=== PATIENT | male | born 1995 | race Caucasian/White ===

== ENCOUNTER 2018-01-08 00:23 | Emergency (ER) | payer BC ==
[~2018-01-08] VITALS: Ht 170.2 cm; Wt 69.5 kg
[2018-01-08 00:28] VITALS: BP 146/66; PULSE 72; RESP 14; TEMP 97.9; O2SAT 97
[2018-01-08] MEDS ORDERED: SERT-132 PO (00:40)
[2018-01-08] MEDS ORDERED: CLIN300C5 PO (01:30)
[2018-01-08] MEDS ORDERED: IBUP1TAB7 PO (01:30)
[2018-01-08] MEDS ORDERED: CLINDAMYCIN 150 MG CAP PO ONE (01:30)
[2018-01-08] MEDS ORDERED: IBUPROFEN 800 MG TAB PO ONE (01:30)
[2018-01-08 01:37] VITALS: BP 146/90
--- NOTE | 2018-01-08 01:41 | PD ---
HPI . Toothache Chief Complaint: Oral / Dental Pain or Problem Time Seen by Provider: 00:45 Travel History International Travel<30 days: No Contact w/Intl Traveler<30days: No History of Present Illness HPI This patient presents with chief complaint of a toothache. Onset was just prior to presentation. He took Tylenol without relief. He rates the pain 9/10. PFSH Past Medical History Anxiety: Yes Tetanus Vaccination: < 5 Years Influenza Vaccination: No Past Surgical History Surgical History: No Previous Surgery Social History Alcohol Use: No Tobacco Use: No Substance Use: No Allergies-Medications (Allergen,Severity, Reaction): Coded Allergies: amoxicillin (Verified Allergy, Unknown, 01/08/18) Reported Meds & Prescriptions Reported Meds & Active Scripts Active Clindamycin (Clindamycin HCl) 300 Mg Cap 300 Mg PO TID Ibuprofen 800 Mg Tab 800 Mg PO Q8H PRN Reported Sertraline (Sertraline HCl) 50 Mg Tab 50 Mg PO DAILY Review of Systems Except as stated in HPI: all other systems reviewed are Neg Physical Exam Narrative GENERAL: Awake and alert and in no acute distress. SKIN: Warm and dry. HEAD: Normocephalic/atraumatic. EYES: Pupils are equal. Extraocular movements are intact. ENT: Tenderness to percussion of his left upper first molar. No erythema or edema of the gingiva. No facial swelling. NECK: Normal range of motion. No cervical lymphadenopathy. CARDIOVASCULAR: Regular rate and rhythm. RESPIRATORY: Nonlabored respirations. MUSCULOSKELETAL: Atraumatic. NEUROLOGICAL: Nonfocal. PSYCHIATRIC: Appropriate mood and affect. Data Data Last Documented VS Vital Signs Date Time Temp Pulse Resp B/P (MAP) Pulse Ox O2 Delivery O2 Flow Rate FiO2 01/08/18 01:37 85 16 146/90 (108) 100 01/08/18 00:28 97.9 Orders Orders Ibuprofen (Motrin) (01/08/18 01:30) Clindamycin (Cleocin) (01/08/18 01:30) Ed Discharge Order (01/08/18 01:31) [facility] Medical Decision Making Medical Screen Exam Complete: Yes Emergency Medical Condition: Yes Differential Diagnosis Differential diagnosis of a toothache includes but is not limited to dental caries, dental abscess, gingivitis, drug-seeking behavior. Narrative Course This patient presents with a toothache. He will be discharged with prescriptions for clindamycin and Motrin. Diagnosis Primary Impression: Toothache Patient Instructions: General Instructions, Toothache (ED) Departure Forms: Work Release, Enter return to work date: January 09, 2018 Tests/Procedures Additional Instructions: Follow up with a dentist Scripts Clindamycin (Clindamycin) 300 Mg Cap 300 MG PO TID for Infection, #21 CAP 0 Refills Prov: Luz Maria Lainez MD 01/08/18 Ibuprofen (Ibuprofen) 800 Mg Tab 800 MG PO Q8H Y for Pain/Inflammation, #60 TAB 0 Refills Prov: Luz Maria Lainez MD 01/08/18 Disposition: DISCHARGE HOME Condition: Stable Luz Maria Lainez MD January 08, 2018 01:41
== END 2018-01-08 01:38 | disposition home or self-care (01) ==
LOC: PHED 00:23
DX: K08.89 Other specified disorders of teeth and supporting structures (principal); F41.9 Anxiety disorder, unspecified; Z88.0 Allergy status to penicillin; Z79.899 Other long term (current) drug therapy
CPT/HCPCS: 99283

== ENCOUNTER 2018-01-11 05:11 | Emergency (ER) | payer BC ==
[~2018-01-11] VITALS: Ht 170.2 cm; Wt 68.8 kg
[~2018-01-11 05:11] MED LIST: CLIN300C5 PO; IBUP1TAB7 PO; SERT-132 PO
[2018-01-11 05:14] VITALS: BP 146/77; PULSE 81; RESP 18; TEMP 97.8; O2SAT 98
[2018-01-11] MEDS ORDERED: CIPR500T2 PO (05:25)
[2018-01-11] MEDS ORDERED: SODIUM CHLOR 0.9% 1000 ML INJ 1,000 ML IV ONE (06:00)
[2018-01-11] MEDS ORDERED: SODIUM CHLORIDE 0.9% FLUSH 10 ML FLUSH IV FLUSH PRN (06:00)
[2018-01-11] MEDS ORDERED: ONDANSETRON HCL 4 MG/2 ML VIAL IV PUSH ONE (06:00)
[2018-01-11] MEDS ORDERED: MORPHINE SULFATE 2 MG/ML SYRINGE IV PUSH ONE (06:00)
[2018-01-11 06:47] LABS: BASOPHIL # 0.2 TH/MM3 (0-0.2); BASOPHIL % 1.4 % (0.0-2.0); EOSINOPHIL # 0.1 TH/MM3 (0-0.4); EOSINOPHIL % 0.7 % (0.0-4.0); HEMATOCRIT 44.5 % (39.0-51.0); HEMOGLOBIN 14.6 GM/DL (13.0-17.0); LYMPH % 10.9 % (9.0-44.0); LYMPHOCYTE # 1.2 TH/MM3 (1.0-4.8); MEAN CELL VOLUME 88.1 FL (80.0-100.0); MEAN CORPUSCULAR HGB CONC 32.9 % (32.0-36.0); MEAN PLATELET VOLUME 8.1 FL (7.0-11.0); MONO % 7.6 % (0.0-8.0); MONOCYTE # 0.9 TH/MM3 (0-0.9); NEUT % 79.4 % (16.0-70.0); PLATELET COUNT 193 TH/MM3 (150-450); RED BLOOD COUNT 5.05 MIL/MM3 (4.50-5.90); RED CELL DISTRIBUTION WIDTH 11.9 % (11.6-17.2); WHITE BLOOD COUNT 11.4 TH/MM3 (4.0-11.0)
[2018-01-11 06:57] LABS: CHLORIDE 106 MEQ/L (98-107); SODIUM (NA) 140 MEQ/L (136-145)
[2018-01-11 07:01] LABS: ALBUMIN 4.6 GM/DL (3.4-5.0); BICARBONATE 25.1 MEQ/L (21.0-32.0); BLOOD UREA NITROGEN 21 MG/DL (7-18); CALCIUM 9.4 MG/DL (8.5-10.1); GLUCOSE,RANDOM 111 MG/DL (74-106); INTERNATIONAL NORMALIZED RATIO 1.1 RATIO; PROTHROMBIN TIME - PATIENT 10.7 SEC (9.8-11.6)
[2018-01-11 07:04] LABS: ALT (GPT) 33 U/L (12-78); AST (GOT) 20 U/L (15-37); GLOMERULAR FILTRATION RATE 54 ML/MIN (>89)
[2018-01-11 07:05] VITALS: BP 136/71; PULSE 76; RESP 18; O2SAT 98
[2018-01-11 07:06] LABS: TOTAL BILIRUBIN ADULT 0.8 MG/DL (0.2-1.0); TOTAL PROTEIN 8.4 GM/DL (6.4-8.2)
[2018-01-11 07:07] LABS: ALKALINE PHOSPHATASE 90 U/L (45-117)
--- NOTE | 2018-01-11 07:24 | PD ---
HPI Chief Complaint: GI Complaint Time Seen by Provider: 05:54 Travel History International Travel<30 days: No Contact w/Intl Traveler<30days: No Traveled to known affect area: No History of Present Illness HPI Patient presents to the emergency department with abdominal pain. States pain started about 8:00/ 9:00 tonight with nausea and vomiting (emesis as his p.o. intake). Pain is described as being epigastric, constant, nonradiating, 6 out of 10, vomiting helps alleviate the pain but no known aggravating factors. He denies fever, chills, diarrhea, dysuria. Of note patient is on clindamycin for dental infection and Cipro for facial cellulitis. States that while he was on the clindamycin he developed facial lesions and came to the ER was given Cipro. Those lesions have since resolved. PFSH Past Medical History Anxiety: Yes Tetanus Vaccination: > 5 Years Influenza Vaccination: No Social History Alcohol Use: No Tobacco Use: No Substance Use: No Allergies-Medications (Allergen,Severity, Reaction): Coded Allergies: amoxicillin (Verified Allergy, Unknown, 01/08/18) Reported Meds & Prescriptions Reported Meds & Active Scripts Active Zofran Odt (Ondansetron Odt) 4 Mg Tab 4 Mg SL Q8HR PRN 3 Days Clindamycin (Clindamycin HCl) 300 Mg Cap 300 Mg PO TID Ibuprofen 800 Mg Tab 800 Mg PO Q8H PRN Reported Ciprofloxacin (Ciprofloxacin HCl) 500 Mg Tab 500 Mg PO BID Review of Systems Except as stated in HPI: all other systems reviewed are Neg Physical Exam Narrative GENERAL: No acute distress. SKIN: Focused skin assessment warm/dry. HEAD: Atraumatic. Normocephalic. EYES: Pupils equal and round. Extraocular muscles intact bilaterally. No scleral icterus. No injection or drainage. ENT: No nasal bleeding or discharge. Mucous membranes are dry. NECK: Trachea midline. No JVD. CARDIOVASCULAR: Regular rate and rhythm. No murmur appreciated. RESPIRATORY: No accessory muscle use. Clear to auscultation. Breath sounds equal bilaterally. GASTROINTESTINAL: Abdomen soft, periumbilical tenderness, nondistended. MUSCULOSKELETAL: No obvious deformities. No clubbing. No cyanosis. No edema. NEUROLOGICAL: Awake and alert. No obvious cranial nerve deficits. Motor grossly within normal limits. Normal speech. PSYCHIATRIC: Appropriate mood and affect; insight and judgment normal. Data Data Last Documented VS Vital Signs Date Time Temp Pulse Resp B/P (MAP) Pulse Ox O2 Delivery O2 Flow Rate FiO2 01/11/18 07:52 87 16 132/79 (96) 98 Room Air 01/11/18 05:14 97.8 Orders Orders Complete Blood Count With Diff (01/11/18 05:54) Comprehensive Metabolic Panel (01/11/18 05:54) Lipase (01/11/18 05:54) Lactic Acid (01/11/18 05:54) Prothrombin Time / Inr (Pt) (01/11/18 05:54) Act Partial Throm Time (Ptt) (01/11/18 05:54) Iv Access Insert/Monitor (01/11/18 05:54) Ecg Monitoring (01/11/18 05:54) Oximetry (01/11/18 05:54) Sodium Chloride 0.9% Flush (Ns Flush) (01/11/18 06:00) Sodium Chlor 0.9% 1000 Ml Inj (Ns 1000 M (01/11/18 06:00) Ondansetron Inj (Zofran Inj) (01/11/18 06:00) Morphine Inj (Morphine Inj) (01/11/18 06:00) Ct Abd/Pel W Iv Contrast(Rout) (01/11/18 05:56) Iohexol 350 Inj (Omnipaque 350 Inj) (01/11/18 07:40) Labs Laboratory Tests Test 01/11/18 06:40 White Blood Count 11.4 TH/MM3 Red Blood Count 5.05 MIL/MM3 Hemoglobin 14.6 GM/DL Hematocrit 44.5 % Mean Corpuscular Volume 88.1 FL Mean Corpuscular Hemoglobin 29.0 PG Mean Corpuscular Hemoglobin Concent 32.9 % Red Cell Distribution Width 11.9 % Platelet Count 193 TH/MM3 Mean Platelet Volume 8.1 FL Neutrophils (%) (Auto) 79.4 % Lymphocytes (%) (Auto) 10.9 % Monocytes (%) (Auto) 7.6 % Eosinophils (%) (Auto) 0.7 % Basophils (%) (Auto) 1.4 % Neutrophils # (Auto) 9.0 TH/MM3 Lymphocytes # (Auto) 1.2 TH/MM3 Monocytes # (Auto) 0.9 TH/MM3 Eosinophils # (Auto) 0.1 TH/MM3 Basophils # (Auto) 0.2 TH/MM3 CBC Comment DIFF FINAL Differential Comment Prothrombin Time 10.7 SEC Prothromb Time International Ratio 1.1 RATIO Activated Partial Thromboplast Time 24.8 SEC Blood Urea Nitrogen 21 MG/DL Creatinine 1.60 MG/DL Random Glucose 111 MG/DL Total Protein 8.4 GM/DL Albumin 4.6 GM/DL Calcium Level 9.4 MG/DL Alkaline Phosphatase 90 U/L Aspartate Amino Transf (AST/SGOT) 20 U/L Alanine Aminotransferase (ALT/SGPT) 33 U/L Total Bilirubin 0.8 MG/DL Sodium Level 140 MEQ/L Potassium Level 3.5 MEQ/L Chloride Level 106 MEQ/L Carbon Dioxide Level 25.1 MEQ/L Anion Gap 9 MEQ/L Estimat Glomerular Filtration Rate 54 ML/MIN Lactic Acid Level 1.2 mmol/L Lipase 98 U/L MDM Medical Decision Making Medical Screen Exam Complete: Yes Emergency Medical Condition: Yes Interpretation(s) Labs: Elevated WBC count, BUN, creatinine. FINDINGS: Lower Lungs: The visualized lower lungs are clear. Liver: The liver has a homogeneous density without space-occupying lesion. There is no dilation of the biliary tree. Spleen: Homogeneous density without enlargement. Pancreas: Unremarkable without mass or calcification. Kidneys: Normal in size and shape. No evidence of mass or hydronephrosis. Adrenal Glands: Unremarkable. Aorta: The aorta and proximal iliac vessels are grossly unremarkable without aneurysmal dilation. Bowel/Mesentery: The bowel loops are grossly unremarkable. The cecum and sigmoid colon have a normal configuration. The appendix is not discretely visualized, however, no inflammatory changes within the right lower quadrant. Abdominal Wall: Intact. Retroperitoneum: No evidence of adenopathy in the retrocrural, para-aortic, or deep pelvic regions. Bladder: Contours are smooth. Reproductive Organs: No abnormal masses or calcifications seen. Inguinal: The inguinal region is unremarkable without evidence of adenopathy. Bony Structures: Unremarkable. CONCLUSION: 1. No evidence of inflammatory process within the abdomen or pelvis. Although the appendix is not clearly visualized there is no evidence of wall thickening, fat stranding or free fluid within the right lower quadrant. Differential Diagnosis Cholecystitis, pancreatitis, gastritis, ulcer disease Narrative Course Patient presents to the emergency department complaining of abdominal pain and vomiting. He was placed on a panel monitor, IV access obtained, and labs in CT scan ordered. He was given 1 L IV normal saline, 2 mg IV morphine, and Zofran 4 mg IV. Patient reports feeling better after the medication and IV fluids. Patient tolerated p.o. prior to discharge and will be sent home with Zofran, return instructions, and advised to follow-up with primary care physician. Diagnosis Primary Impression: Abdominal pain Qualified Codes: R10.13 - Epigastric pain Additional Instructions: 1. Meds as directed. 2. Follow-up with primary care doctor in 24-48 hours. 3. Return to the emergency department for fever, vomiting, bloody diarrhea, worsening abdominal pain, or for any new/worrisome/worsening symptoms. Med/Other Pt SpecificInfo: Prescription(s) given Scripts Ondansetron Odt (Zofran Odt) 4 Mg Tab 4 MG SL Q8HR Y for Nausea/Vomiting for 3 Days, #9 TAB 0 Refills Prov: Alexandra Oviedo MD 01/11/18 Disposition: 01 DISCHARGE HOME Condition: Stable Alexandra Oviedo MD Jan 11, 2018 07:24
[2018-01-11] MEDS ORDERED: IOHEXOL 350 MG/ML 10 ML VIAL (for RAD DIAG) IVCONTRAST ONE (07:40)
--- NOTE | 2018-01-11 07:50 | RADRPT ---
EXAM DATE: 01/11/2018 7:42 AM EDT AGE/SEX: 22 years / Male INDICATIONS: Lower abdomen pain today. CLINICAL DATA: This is the patient's initial encounter. Patient reports that signs and symptoms have been present for 1 day and indicates a pain score of 7/10. MEDICAL/SURGICAL HISTORY: None. None. ORAL CONTRAST: No oral contrast ingested. RADIATION DOSE: 6.23 CTDI (mGy) COMPARISON: No prior [facility] exams available for comparison. TECHNIQUE: Multiple contiguous axial images were obtained through the abdomen and pelvis following b olus infusion of 85 ml Omnipaque 350 (iohexol) nonionic water-soluble contrast as a single exam dos e. No oral contrast ingested. Using automated exposure control and adjustment of the mA and/or kV ac cording to patient size, the radiation dose was kept as low as reasonably achievable to obtain optima l diagnostic quality images. FINDINGS: Lower Lungs: The visualized lower lungs are clear. Liver: The liver has a homogeneous density without space-occupying lesion. There is no dilation of th e biliary tree. Spleen: Homogeneous density without enlargement. Pancreas: Unremarkable without mass or calcification. Kidneys: Normal in size and shape. No evidence of mass or hydronephrosis. Adrenal Glands: Unremarkable. Aorta: The aorta and proximal iliac vessels are grossly unremarkable without aneurysmal dilation. Bowel/Mesentery: The bowel loops are grossly unremarkable. The cecum and sigmoid colon have a normal configuration. The appendix is not discretely visualized, however, no inflammatory changes within th e right lower quadrant. Abdominal Wall: Intact. Retroperitoneum: No evidence of adenopathy in the retrocrural, para-aortic, or deep pelvic regions. Bladder: Contours are smooth. Reproductive Organs: No abnormal masses or calcifications seen. Inguinal: The inguinal region is unremarkable without evidence of adenopathy. Bony Structures: Unremarkable. CONCLUSION: 1. No evidence of inflammatory process within the abdomen or pelvis. Although the appendix is not cl early visualized there is no evidence of wall thickening, fat stranding or free fluid within the righ t lower quadrant. Electronically signed by: Jadyn Trinh MD 01/11/2018 7:48 AM EDT
[2018-01-11 07:52] VITALS: BP 132/79; PULSE 87; RESP 16; O2SAT 98
[2018-01-11] MEDS ORDERED: ZOFR4TAB3 SL (08:19)
== END 2018-01-11 08:36 | disposition home or self-care (01) ==
LOC: PHED 05:11
DX: R10.13 Epigastric pain (principal); R11.2 Nausea with vomiting, unspecified; K04.7 Periapical abscess without sinus; F41.9 Anxiety disorder, unspecified
CPT/HCPCS: 74177; 80053; 83605; 83690; 85025; 85610; 85730; 96361; 96374; 99284; J2405; J7030; Q9967